=== PATIENT | male | born 1950 | race Caucasian/White ===

== ENCOUNTER 2016-09-14 05:51 | Emergency (ER) | payer OTHER ==
[~2016-09-14] VITALS: Ht 182.9 cm; Wt 111.4 kg
[~2016-09-14 05:51] MED LIST: AMIL5TAB8 PO; AMLO-512 PO; SIMV-259 PO
[2016-09-14 05:52] VITALS: BP 153/90
[2016-09-14] MEDS ORDERED: DOXY50CA2 PO (06:07)
[2016-09-14] MEDS ORDERED: IRBE150T51 PO (06:07)
== END 2016-09-14 06:19 | disposition left against medical advice (07) ==
LOC: EMS 05:53
DX: R42 Dizziness and giddiness (principal); R51 Headache; R07.89 Other chest pain; I10 Essential (primary) hypertension; E78.00 Pure hypercholesterolemia, unspecified; Z53.21 Procedure and treatment not carried out due to patient leaving prior to being seen by health care provider